=== PATIENT | male | born 1975 | race Caucasian/White ===

== ENCOUNTER 2022-07-06 12:55 | Emergency (ER) | payer BC, SELFPAY ==
--- NOTE | ~2022-07-06 | XR_ITS ---
Right wrist Technique: PA, oblique, lateral, and ulnar deviation views were obtained. Clinical History: Pain Findings: No acute fracture or dislocation is seen. Osseous alignment is anatomic. Joint spaces are p reserved. Soft tissues are unremarkable. Impression: Unremarkable right wrist radiographs. Reviewed, dictated and finalized at location . [employer] LIBRARY LIBRARIAN Impression: Unremarkable right wrist radiographs.
[2022-07-06 13:06] VITALS: BP 147/106; PULSE 99; RESP 20; TEMP 36.3; O2SAT 100
--- NOTE | 2022-07-06 13:08 | ED.UPPEXIN ---
HPI - Extremity Injury (Upper) General Chief Complaint: Extremity Injury, Upper Stated Complaint: Right Wrist Pain Time Seen by Provider: 07/06/22 13:08 Source: patient and RN notes reviewed History of Present Illness HPI narrative: Patient is a 47-year-old male who presents to the Urgent Care with complaints of right wrist pain. Patient states that he was leaning over onto his wrist while working in the attic on Monday and the wrist started to bother him. Patient states he has been wearing a brace and using Aleve and ibuprofen for the pain. Patient states that got worse after walking and having to use his wrist continuously working a she did. No other acute complaints. Denies any known traumatic injuries. No acute distress noted. Patient aware of the plan care. Some parts of this dictation were generated by voice recognition software and may contain typographical and/or grammatical inaccuracies. Related Data Allergies Allergy/AdvReac Type Severity Reaction Status Date / Time No Known Allergies Allergy Unverified 09/03/18 08:27 Review of Systems Review of Systems: CONSTITUTIONAL: Denies fever, chills, or sweats. EYES: Denies visual changes, redness, or discharge. ENT: Denies rhinorrhea, congestion, sore throat, or otalgia. CARDIOVASCULAR: Denies chest pain, palpitations, or edema. RESPIRATORY: Denies cough or dyspnea. GASTROINTESTINAL: Denies abdominal pain, nausea, vomiting, or diarrhea. GENITOURINARY: Denies dysuria or hematuria. SKIN: Denies rash or itching. MUSCULOSKELETAL: Reports right wrist pain NEUROLOGIC: Denies headache, numbness, or weakness. All other systems reviewed are negative, except as documented in HPI. PMFSH Comments At the time of my signature, I reviewed and agree with the nursing past medical, surgical, social, and family history. There is no relevant family history pertinent to the patient complaint. Exam Narrative: GENERAL: This is a well-nourished, well-developed patient, in no apparent distress. HEAD: normocephalic, atraumatic. EYES: PERRL. Sclera clear/white. Vision is grossly intact. EARS: External ears normal NOSE: External nose normal with no obvious nasal discharge, nares without redness, no rhinorrhea. THROAT: Mucous membranes moist NECK: Neck supple CARDIOVASCULAR: Regular rate and rhythm SKIN: warm, intact with no suspicious lesions or rash, good texture and turgor. NEURO: awake, alert, and oriented to person, place and time. There were no obvious focal neurologic abnormalities. EXTREMITIES: No obvious deformity, ecchymosis, erythema or edema noted to the right upper extremity/wrist. Positive strong right radial pulse with capillary refill less than 2 seconds. Range of motion within normal limits with mild exacerbated pain Course Course Level of Care: Express Care Visit Vital Signs Vital signs: Vital Signs Temperature 97.4 F L 07/06/22 13:06 Pulse Rate 99 07/06/22 13:06 Respiratory Rate 20 07/06/22 13:06 Blood Pressure 147/106 H 07/06/22 13:06 Pulse Oximetry 100 07/06/22 13:06 Oxygen Delivery Room Air 07/06/22 13:06 Temperature 97.4 F L 07/06/22 13:06 Pulse Rate 99 07/06/22 13:06 Respiratory Rate 20 07/06/22 13:06 Blood Pressure 147/106 H 07/06/22 13:06 Pulse Oximetry 100 07/06/22 13:06 Oxygen Delivery Room Air 07/06/22 13:06 Reviewed- Patient is informed that they may have pre-hypertension or hypertension based on a blood pressure reading in the department. I recommend the patient call the primary care provider listed on their discharge instructions or a physician of their choice this week to arrange follow-up for further evaluation of possible pre-hypertension or hypertension. MDM - Extremity Injury (Upper) MDM Narrative Medical decision making narrative: Reviewed x-ray results with the patient. He is aware that x-ray was negative for fracture deformity. Advised the patient to wear the brace as needed for comfort and support
--- NOTE | 2022-07-06 13:16 | PC.NURSE ---
PT DECLINED ICE FOR COMFORT. PT BROUGHT WRIST SPLINT FROM HOME.
== END 2022-07-06 13:48 | disposition home or self-care (01) ==
PROVIDERS: Emergency Provider Nurse Practitioner Family; PCP Internal Medicine
DX: M77.8 Other enthesopathies, not elsewhere classified (principal); Z86.16 Personal history of COVID-19
CPT/HCPCS: 73110; 99203; G0463

== ENCOUNTER 2025-02-18 14:30 | Emergency (ER) | payer BC, SELFPAY ==
--- OUTSIDE RECORDS SUMMARY | 2002-04-03 08:00 | XMS_ITS | Continuity of Care Document ---
Author Organization [facility] Address [address] [place] [address] [place] [address] Phone Care Team Providers Care Franchise Development Manager Name Role Phone Piter Pathak MD Unavailable Unavailable Advance Directives Directive Yes / No Effective Date File Name No Information Encounters Encounter Description Practice Location Reason(s) For Visit Diagnoses Date Provider Providers Copied on Encounter [facility], [id number] [place] [address] [address], [place], [place], [id number], [place] tel:[phone] [facility] Professional No Information [address] [facility], [facility], [place], [place], [id number], [place]. tel:[phone] Family History Family Member Type Diagnosis Age At Onset No Information Payers Payer name Insurance type Covered constitution party ID Authoriza tion(s) No Information Social History Type Description Quantity Date Captured Comments Sex Male Smoking Status No Information Chief Complaint And Reason For Visit No Information Reason For Referral Reason For Referral No Information History Of Present Illness Encounter Date Complaint History Of Prese nt Illness No Information Functional Status Date Functional Assessmen t No Information Instructions Date Instruction Additional Infor mation No Information Assessments Type Assessment Date No Information Patient Care Teams Name Effective Dates (start - stop) Status Members No Information
--- OUTSIDE RECORDS SUMMARY | 2002-04-03 08:00 | XMS_ITS | Continuity of Care Document ---
Author Organization [facility] Address [address] [place] [address] [place] [address] Phone Care Team Providers Care Marketing Communications Coordinator Name Role Phone Piter Pathak MD Unavailable Unavailable Advance Directives Directive Yes / No Effective Date File Name No Information Encounters Encounter Description Practice Location Reason(s) For Visit Diagnoses Date Provider Providers Copied on Encounter [facility], [id number] [place] [address] [address], [place], [place], [id number], [place] tel:[phone] [facility] Professional No Information [address] [facility], [place], [place], [id number], [place]. tel:[phone] Family History Family Member Type Diagnosis Age At Onset No Information Payers Payer name Insurance type Covered democrat ID Authoriza tion(s) No Information Social History [...]
--- NOTE | ~2025-02-18 | XR_ITS ---
XR foot LT min 3V 02/18/2025 14:58 Indication: Painful first MTP joint Procedure: 3 views left foot Comparison: No prior studies for comparison. Findings: There is mild osteoarthritis of the first MTP joint. No acute fracture, subluxation or dislocation. There is mild degenerative change of the talonavicular joint. No focal soft tissue abnormality. Lisfranc joint intact. Impression: 1: Mild polyarticular osteoarthritis. Reviewed, dictated and finalized at location O. Impression: 1: Mild polyarticular osteoarthritis.
[2025-02-18 14:40] VITALS: BP 171/94; PULSE 87; RESP 18; TEMP 36.4; O2SAT 98
--- NOTE | 2025-02-18 15:30 | ED.EXTPRO ---
HPI - Extremity Problem General Chief complaint: Extremity Problem,Nontraumatic Stated complaint: Left Foot Pain Source: patient Mode of arrival: ambulatory Limitations: no limitations History of Present Illness HPI Narrative: Patient presents for evaluation of left great toe pain. Symptom onset two days ago. No recent injury. He states he has a history of a remote fracture in the area of his current pain. Pain is constant, 5/10 in severity and sharp. No loss of ROM. Movement makes his symptoms worse. He has tried taking ibuprofen without much improvement. No history of gout however he drinks alcohol daily and also takes hctz. Related Data Home Medications ?Medication ?Instructions ?Recorded ?Confirmed ?Last Taken ?Type atorvastatin 10 mg tablet mg 02/18/25 Unknown History diltiazem HCl 240 mg mg PO 02/18/25 Unknown History capsule,extended release 24 hr hydrochlorothiazide 25 mg tablet mg 02/18/25 Unknown History metformin 500 mg tablet,extended mg PO 02/18/25 Unknown History release 24 hr Allergies Allergy/AdvReac Type Severity Reaction Status Date / Time No Known Allergies Allergy Verified 02/18/25 14:40 Review of Systems Review of Systems: CONSTITUTIONAL: Denies fever, chills, or sweats. EYES: Denies visual changes, redness, or discharge. ENT: Denies rhinorrhea, congestion, sore throat, or otalgia. CARDIOVASCULAR: Denies chest pain, palpitations, or edema. RESPIRATORY: Denies cough or dyspnea. GASTROINTESTINAL: Denies abdominal pain, nausea, vomiting, or diarrhea. GENITOURINARY: Denies dysuria or hematuria. SKIN: Denies rash or itching. MUSCULOSKELETAL: Reports pain in the left great toe NEUROLOGIC: Denies headache, numbness, dizziness, or weakness. PSYCHIATRIC: Denies anxiety or depression. [facility] Past Medical History Medical History Diabetes Hypertension Surgical History Surgical History No pertinent past surgical history Family History Family History Mother Family history unknown Social History Social History Alcohol intake: current Alcohol use details: 4-5 drinks daily Living arrangements: with family Exam Narrative: GENERAL: Well-appearing, well-nourished, and in no acute distress. HEAD: Normocephalic, atraumatic. EYES: PERRLA and EOMI. ENT: Nares clear, no rhinorrhea or epistaxis. Mucous membranes moist. Oropharynx without tonsillar hypertrophy exudate or other lesions. Bilateral TMs pearly vasquez nonbulging NECK: Supple. No adenopathy or masses. No carotid bruits or JVD CHEST: Clear to auscultation. No respiratory distress. No wheezes rales or rhonchi HEART: Regular rate and rhythm. No murmur heard. Normal peripheral pulses. ABDOMEN: Soft, nontender, nondistended, normal active bowel sounds. EXTREMITIES: Normal range of motion. There is trace swelling noted to the 1st MTP of the left foot SKIN: Warm, dry, no rash. NEURO: No focal deficits. Alert and oriented x3. PSYCH: Normal mood and affect. Course Course Emergency Course: This is a 49 year old male who presented for pain in the left great toe. History, risk factors, and physical exam consistent with gout. We discussed potentially being discharged with prednisone and hydrocodone although he did not wish to take any controlled medication. Prednisone may also cause an increase in his blood sugar. Colchicine has a potential drug interaction with diltiazem which he takes. Will dc with indomethacin. Recommended he cut back on drinking. Advise a speak with his primary care provider regarding whether he should continue with hydrochlorothiazide and with her he would be a good candidate for allopurinol. He should go to the emergency department for intractable pain. Patient in agreement with plan of care. Level of Care: Express Care Visit Vital Signs Vital signs: Vital Signs Temperature 36.4 C L 02/18/25 14:40 Pulse Rate 87 02/18/25 14:40 Respiratory Rate 18 02/18/25 14:40 Blood Pressure 171/94 H 02/18/25 14:40 Pulse Oximetry 98 02/18/25 14:40 Oxygen Delivery Room Air 02/18/25 14:40 Temperature 36.4 C L 02/18/25 14:40 Pulse Rate 87 02/18/25 14:40 Respiratory Rate 18 02/18/25 14:40 Blood Pressure 171/94 H 02/18/25 14:40 Pulse Oximetry 98 02/18/25 14:40 Oxygen Delivery Room Air 02/18/25 14:40 MDM - Extremity (Nontraumatic) Imaging Data Radiologist's impression: XR foot LT min 3V 02/18/2025 14:58 Indication: Painful first MTP joint Procedure: 3 views left foot Comparison: No prior studies for comparison. Findings: There is mild osteoarthritis of the first MTP joint. No acute fracture, subluxation or dislocation. There is mild degenerative change of the talonavicular joint. No focal soft tissue abnormality. Lisfranc joint intact. Impression: 1: Mild polyarticular osteoarthritis. Discharge Plan Discharge Clinical Impression: Gout Patient Disposition: Home Condition: Stable Instructions: Antibiotic Form, Gout (ED) Additional Instructions: PLEASE SPEAK WITH YOUR PRIMARY CARE PROVIDER ABOUT WHETHER YOU SHOULD CONTINUE WITH HCTZ AND WHETHER YOU WOULD BENEFIT FROM ALLOPURINOL Patient Language: Ghanaian Prescriptions: New indomethacin 50 mg capsule 50 mg PO TID 7 Days Qty: 21 0RF Rx Instructions: administer with food or milk No Action atorvastatin 10 mg tablet diltiazem HCl 240 mg capsule,extended release 24hr PO hydrochlorothiazide 25 mg tablet metformin 500 mg tablet extended release 24 hr PO Follow-up/Referrals: Kristin,Howard Hernandez MD [Primary Care Provider] Time of Disposition: 15:19
--- OUTSIDE RECORDS SUMMARY | 2025-02-18 16:10 | XMS_ITS | Clinical Summary ---
Author Organization [facility] Address [address] [place] [address] Care Team Providers Care Health Insurance Sales Agent Name Role Phone Unavailable Primary Care Provider Unavailabl e Source Comments [facility],non-owned Affiliates and Associated Physician Practices is amultiple site organization consisting of ambulatory clinics and hospital sitesin [place], [place], [place] and [place]. This disclosure is being madepursuant to the Care Everywhere program and may not contain all information available regarding this patient. Last updated 18.[facility] Allergies No known active allergies Medications * Be aware that medications may not be up to date on this document. Alwaysverify current medications with the patient. No known medications Social History Tobacco Use Types Packs/Day Years Used Date Smoking Tobacco: Never Assessed Sex and Gender Information Value Date Recorded Sex Assigned at Not on file Legal Sex Male 8:04 AM CDT Gender Identity Not on file Sexual Orientation Not on file Last Filed Vital Signs Vital Sign Reading Time Taken Comments Blood Pressure 124/80 02/18/2016 8:25 AM CDT Pulse 81 02/18/2016 8:25 AM CDT Temperature 37 C (98.6 F) 02/18/2016 8:25 AM CDT Respiratory Rate - - Oxygen Saturation - - Inhaled Oxygen Concentration - - Weight 88 kg (194 lb) 02/18/2016 8:25 AM CDT Height 182.9 cm (6') 02/18/2016 8:25 AM CDT Body Mass Index 26.31 02/18/2016 8:25 AM CDT Plan of Treatment Health Maintenance Due Date Last Done Comments COLOGUARD (AGES 45-75) - COL ON CA SCREENING 1975 COLON MONITORING 1975 COLONOSCOPY - COLON CA SCREENING 1975 CT COLONOGRAPHY - COLON CA SCREENING 1975 Colorectal Cancer Screening 1975 FIT - COLON CA SCREENING 1975 FLEX SIG - COLON CA SCREENING 1975 LIPID TESTING 1975 HIV SCREENING 1990 HEPATITIS C SCREENING 03/10/1993 DTAP/TDAP/TD VACCINES (1 - Tdap) 1994 HEPATITIS B VACCINE (1 of 3 - 19+ 3-dose series) 1994 DEPRESSION SCREENING 06/12/2024 COVID-19 VACCINE (1 - 2023-2 5 season) 2025 INFLUENZA VACCINE (#1) 2025 ZOSTER VACCINE (1 of 2) 2025 HIB VACCINE Aged Out No longer eligi ble based on patient's age to complete this topic HPV VACCINE Aged Out No longer eligi ble based on patient's age to complete this topic MENINGOCOCCAL (Group B) VACC INE SHARED DECISION-MAKING Aged Out No longer eligibl e based on patient's age to complete this topic MENINGOCOCCAL GROUPS A/C/Y/W VACCINE Aged Out No longer eligible b ased on patient's age to complete this topic Insurance BEATRICE
--- OUTSIDE RECORDS SUMMARY | 2025-02-18 16:10 | XMS_ITS | Encounter Summary ---
Author Organization [facility] Address [address] [place] [address] Care Team Providers Care Cager Operator Name Role Phone Howard Foster MD Primary Care Provider [phone] Reason for Visit * Reason Comments Medication Question Encounter Details Date Type Department Care Team (Late st Contact Info) Description 09/21/2023 Telephone [facility] Primary Care [address] [place] [address] Howard Foster MD [address] [place] [address] [address] [place] [address] Medication Question Social History Tobacco Use Types Packs/Day Years Used Date Smoking Tobacco: Never Passive Smoke Exposure: Never Smokeless Tobacco: Current Chew Alcohol Use Standard Drinks/Week Comments Yes 4 (1 standard drink = 0.6 oz pur e alcohol) occ Feeling Safe Answer Date Recorded Are you in a relationship wi th someone who hurts you emotionally and/or physically? No 09/22/2023 Sex and Gender Information Value Date Recorded Sex Assigned at Not on file Legal Sex Male 4:31 PM INTERNATIONAL RECRUITER Gender Identity Not on file Sexual Orientation Not on file documented as of this encounter Miscellaneous Notes * Telephone Encounter - Carmelita Perez LPN - 09/21/2023 8:49 AM CDT MM sent to provider, please allow 24-48 business hours for a reply * Telephone Encounter - Tato, Sherrill Crystal - 09/21/2023 8:44 AM CDT Copied from [facility] #[id number]. Topic: Patient or Caregiver Communication Request >> Sep 21, 2023 8:41 AM Sherrill Olivera wrote: Patient or Caregiver insisting that a message be sent to Care Team Caller: Howard Bermudez Patient/Caregiver Callback Number: [phone] (home) Call Notes: Patient states he sent a [employer] message informing PCP bout his anxiety he has been having regarding his upcoming colonoscopy. Patient states it has bene causing his BP to rise to 150/90ish. Patient is asking if PCP could prescribe a medication for the days upcoming. Please advise. [facility] #[id number] - [place], [place] - [facility] [address] [facility] [address] [facility] [address] Hours: Not open 24 hours documented in this encounter Plan of Treatment Upcoming Encounters Date Type Department Care Team (Late st Contact Info) Description 08/08/2025 9:00 AM INTERNATIONAL RECRUITER Office Visit [facility] Primary Care [facility] [address] [place] [address] Howard Foster MD [address] [place] [phone] documented as of this encounter Visit Diagnoses Not on filedocumented in this encounter Care Teams Cager Operator Relationship Specialty Start Date End Date Howard Foster MD [address] [place] [address] [address] [place] [phone] PCP - General Internal Medicine 08/15/22 documented as of this encounter
--- OUTSIDE RECORDS SUMMARY | 2025-02-18 16:10 | XMS_ITS | Clinical Summary ---
Author Organization [facility] [address] [place] [address] Address [address] [place] [address] Care Team Providers Care Engineering Recruiter Name Role Phone Howard Foster MD Primary Care Provider [phone] Allergies Active Allergy Reactions Criticality Noted Date Comments Amlodipine Other (See Comments) 01/30/2024 Edema Losartan Dizziness Low 01/30/2024 Nebivolol Hives High 09/23/2022 ? Medications clobetasoL (TEMOVATE) 0.05 % Cream Apply to affected area 2 times daily. 60 Gram 2 4 Active hydroCHLOROthiazi de 25 mg tabletIndications :Essential hypertension TAKE 1 TABLET(25 MG) BY MOUTH DAILY 100 Tablet 3 4 Active atorvastatin (LIPITOR) 10 mg tablet TAKE 1 TABLET(10 MG) BY MOUTH DAILY 100 Tablet 3 5 Active dilTIAZem (CARDIZEM CD, CARTIA XT) 240 mg Controlled Delivery 24 hour capsule Take 1 Capsule (240 mg) by mouth daily. 90 Capsule 3 5 Active metFORMIN (GLUCOPHAGE XR) 500 mg Extended Release 24 hour tablet Take 1 Tablet (500 mg) by mouth daily with breakfast. 30 Tablet 6 5 Active Active Problems Patient Care Coordination No te Formatting of this note migh t be different from the original. Prev 07/19/24 Problem Noted Date Diagnosed Date Essential hypertension 11/02/2023 Prediabetes 10/17/2023 Dyslipidemia 10/17/2023 Family history of prostate cancer 08/15/2022 Resolved Problems Problem Noted Date Diagnosed Date Resolved Date Elevated BP without diagnosis of hypertension 08/16/19 23 10/17/2023 Encounters Date Type Department Care Team Description 01/22/2025 9:40 AM CDT Office Visit [address] [address] Howard Foster MD Prediabetes (Primary Dx); Other hyperlipidemia; Essential hypertension; Right wrist pain from Last 3 Months Immunizations Immunization Administration Dates Next Due (ADACEL/BOOSTRIX)(10 YR UP) TDAP VACCINE, 0.5ML, IM 08/15/2022 INFLUENZA VACCINE QUADRIVALENT 6 MOS UP PF IM Family History Medical History Relation Name Comments Heart Attack Father Prostate Cancer Father Lung Cancer Mother Asthma Sister Colon Cancer Neg Hx Relation Name Status Comments Father (Age 70) Mother (Age 40) Sister Alive Social History Tobacco Use Types Packs/Day Years Used Date Smoking Tobacco: Never Passive Smoke Exposure: Never Smokeless Tobacco: Former Chew Tobacco Cessation:Counseling Given: No Alcohol Use Standard Drinks/Week Comments Yes 4 (1 standard drink = 0.6 oz pur e alcohol) occ Feeling Safe Answer Date Recorded Are you in a relationship wi th someone who hurts you emotionally and/or physically? 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 Gender Identity Not on file Sexual Orientation Not on file Last Filed Vital Signs Vital Sign Reading Time Taken Comments Blood Pressure 130/60 01/22/2025 9:28 AM CDT Pulse 80 01/22/2025 9:28 AM CDT Temperature 37.1 C (98.7 F) 10/17/2023 8:52 AM CDT Respiratory Rate 14 09/22/2023 8:12 AM CDT Oxygen Saturation 95% 01/22/2025 9:28 AM CDT Inhaled Oxygen Concentration - - Weight 93 kg (205 lb) 01/22/2025 9:28 AM CDT Height 180.3 cm (5' 11) 01/22/2025 9:28 AM CDT Body Mass Index 28.59 01/22/2025 9:28 AM CDT Plan of Treatment Upcoming Encounters Date Type Department Care Team (Late st Contact Info) Description 08/08/2025 9:00 AM FOREST FIRE PREVENTION SPECIALIST Office Visit [address] [place] [phone] Howard Foster MD [address] [place] [address] [address] [place] [address] Health Maintenance Due Date Last Done Comments HEPATITIS B VACCINES (1 of 3 - 19+ 3-dose series) 1994 FIT-DNA Q 3 years 2020 FIT/FOBT Q 1 year 2020 Flex Sig/CT Colonography Q 5 years 2020 INFLUENZA VACCINE (#1) 2025 , 02/15/2023, 02/15/2023 Pre-Diabetes and Diabetes Screening 01/16/2028 01/15/2025, 07/10/2024, 01/12/2024, Additional history exists COLORECTAL SCREENING 09/21/2030 09/22/2023, 09/22/19 24 Colorectal Cancer Screening 09/21/2030 DTAP/TDAP/TD VACCINES (2 - T d or Tdap) 08/15/2032 08/15/2022 Preventative Visit- Commercial Completed 0 07/19/2024, 07/18/2023, 08/15/2022 Procedures Procedure Name Priority Date/Time Associated Diagnosis Comments TSH Routine 01/15/2025 8:50 AM CDT Other hyperlipidemia PSA Routine 01/15/2025 8:50 AM CDT Screening PSA (prostate specific antigen) LIPID PANEL Routine 01/15/2025 8:50 AM CDT Other hyperlipidemia HEMOGLOBIN A1C Routine 01/15/2025 8:50 AM CDT Prediabetes COMPREHENSIVE METABOLIC PANEL Routine 01/15/2025 8:50 AM CDT Other hyperlipidemia CBC WITH DIFFERENTIAL Routine 01/15/2025 8:50 AM CDT Essential hypertension COLONOSCOPY REPORT 09/22/2023 7: 59 AM CDT from Last 3 Months or Most Recently Relevant to Health Maintenance Results * (ABNORMAL) CBC WITH DIFFERENTIAL (01/15/2025 8:50 AM CDT) WBC 3.8 3.8 - 10.8 Thousand/u L [facility] RBC 5.17 4.20 - 5.80 Million/uL [facility] HEMOGLOBIN 15.6 13.2 - 17.1 g/dL [facility] HEMATOCRIT 48.0 38.5 - 50.0 % [facility] MCV 92.8 80.0 - 100.0 fL [facility] MCH 30.2 27.0 - 33.0 pg [facility] MCHC 32.5 32.0 - 36.0 g/dL [facility] Comment: For adults, a slight decrease in the calculated MCHC value (in the range of 30 to 32 g/dL) is most likely not clinically significant; however, it should be interpreted with caution in correlation with other red cell parameters and the patient's clinical condition. RDW 12.7 11.0 - 15.0 % [facility] PLATELETS 211 140 - 400 Thousand/u L [facility] MPV 10.3 7.5 - 12.5 fL [facility] NEUTROPHIL ABSOLUTE 1,474(L) 1,500 - 7,800 cells/uL [facility] LYMPHOCYTE ABSOLUTE 1,414 850 - 3,900 cells/uL [facility] MONOCYTE ABSOLUTE 692 200 - 950 cells/uL [facility] EOSINOPHIL ABSOLUTE 160 15 - 500 cells/uL [facility] BASOPHILS ABSOLUTE 61 0 - 200 cells/uL [facility] NEUTROPHIL 38.8 % [facility] LYMPHOCYTES 37.2 % [facility] MONOCYTE 18.2 % [facility] EOSINOPHILS 4.2 % [facility] BASOPHILS 1.6 % [facility] Comment: FASTING:YES FASTING: YES Test Performed at: [facility] [address] [place] [address] Miguel Bar MD Blood 01/15/2025 8:50 AM CDT 01/15/2025 8:51 AM CDT Howard Foster MD HEMATOLOGY ORDERABLES Final R esult [facility] [phone] [facility] [address] [place] [address] * TSH (01/15/2025 8:50 AM CDT) TSH 1.98 0.40 - 4.50 mIU/L [facility] Comment: Test Performed at: [facility] [address] [place] [address], [place] [address] Miguel Bar MD Blood 01/15/2025 8:50 AM CDT 01/15/2025 8:51 AM CDT Howard Foster MD CHEMISTRY ORDERABLES Final Re sult Performing Organization Address City/[facility]/ZIP Co de Phone Number [facility] [phone] [facility] [address] [place] [phone] * PSA (01/15/2025 8:50 AM CDT) PSA 1.18 < OR = 4.00 ng/mL [facility] Comment: The total PSA value from this assay system is standardized against the WHO standard. The test result will be approximately 20% lower when compared to the equimolar-standardized total PSA (Lisa [place]). Comparison of serial PSA results should be interpreted with this fact in mind. This test was performed using the Siemens chemiluminescent method. Values obtained from different assay methods cannot be used interchangeably. PSA levels, regardless of value, should not be interpreted as absolute evidence of the presence or absence of disease. FASTING:YES FASTING: YES Test Performed at: [facility] [address] [place] [address] [place] [address] Miguel Bar MD Blood 01/15/2025 8:50 AM CDT 01/15/2025 8:51 AM CDT Howard Foster MD CHEMISTRY ORDERABLES Final Re sult Performing Organization Address City/State/ZIP Co sc Phone Number [facility] [phone] [facility] [address] [place] [address] * (ABNORMAL) HEMOGLOBIN A1C (01/15/2025 8:50 AM CDT) HEMOGLOBIN A1C 6.1(H) <5.7 % of total Hgb [facility] Comment: For someone without known diabetes, a hemoglobin A1c value between 5.7% and 6.4% is consistent with prediabetes and should be confirmed with a follow-up test. For someone with known diabetes, a value <7% indicates that their diabetes is well controlled. A1c targets should be individualized based on duration of diabetes, age, comorbid conditions, and other considerations. This assay result is consistent with an increased risk of diabetes. Currently, no consensus exists regarding use of hemoglobin A1c for diagnosis of diabetes for children. ESTIMATED AVERAGE GLUCOSE (MG/DL) 128 mg/dL [facility] ESTIMATED AVERAGE GLUCOSE (MMOL/L) 7.1 mmol/L [facility] Comment: FASTING:YES FASTING: YES Test Performed at: [facility] [address] [place] [address] [facility] Blood 01/15/2025 8:50 AM CDT 01/15/2025 8:51 AM CDT Howard Foster MD CHEMISTRY ORDERABLES Final Re sult [facility] [phone] [facility] [address] [place] [address] * (ABNORMAL) LIPID PANEL (01/15/2025 8:50 AM CDT) CHOLESTEROL 182 <200 mg/dL [facility] HDL 55 > OR = 40 mg/dL [facility] TRIGLYCERIDE 102 <150 mg/dL [facility] LDL CALCULATED 107(H) mg/dL (calc) [facility] Comment: Reference range: <100 Desirable range <100 mg/dL for primary prevention; <70 mg/dL for patients with CHD or diabetic patients with > or = 2 CHD risk factors. LDL-C is now calculated using the Darren-Sarabia calculation, which is a validated novel method providing better accuracy than the Friedewald equation in the estimation of LDL-C. Darren SS et al. DWIGHT. 2013;310(19): 1297-1484 (http://education.[employer]/faq/QBL168) CHOL/HDL RATIO 3.3 <5.0 (calc) [facility] NON-HDL CHOLESTEROL 127 <130 mg/dL (calc) [facility] Comment: For patients with diabetes plus 1 major ASCVD risk factor, treating to a non-HDL-C goal of <100 mg/dL (LDL-C of <70 mg/dL) is considered a therapeutic option. Test Performed at: [facility] [address] [place] [address] Miguel Bar MD Blood 01/15/2025 8:50 AM CDT 01/15/2025 8:51 AM CDT us Howard Foster MD CHEMISTRY ORDERABLES Final Re sult [facility] [phone] [facility] [address] [place] [address] * (ABNORMAL) COMPREHENSIVE METABOLIC PANEL (01/15/2025 8:50 AM CDT) GLUCOSE 126(H) 65 - 99 mg/dL [facility] Comment: Fasting reference interval For someone without known diabetes, a glucose value >125 mg/dL indicates that they may have diabetes and this should be confirmed with a follow-up test. BUN 9 7 - 25 mg/dL [facility] CREATININE 0.79 0.60 - 1.29 mg/dL [facility] GFR 109 > OR = 60 mL/min/1. 73m2 [facility] BUN/CREAT RATIO SEE NOTE: 6 - 22 (calc) [facility] Comment: Not Reported: BUN and Creatinine are within reference range. SODIUM 139 135 - 146 mmol/L [facility] POTASSIUM 4.6 3.5 - 5.3 mmol/L [facility] CHLORIDE 102 98 - 110 mmol/L [facility] CO2 29 20 - 32 mmol/L [facility] CALCIUM 9.5 8.6 - 10.3 mg/dL [facility] TOTAL PROTEIN 7.3 6.1 - 8.1 g/dL [facility] ALBUMIN 4.5 3.6 - 5.1 g/dL [facility] GLOBULIN 2.8 1.9 - 3.7 g/dL (calc) [facility] ALBUMIN/GLOBULIN RATIO 1.6 1.0 - 2.5 (calc) [facility] BILIRUBIN TOTAL 0.6 0.2 - 1.2 mg/dL [facility] ALKALINE PHOSPHATASE 50 36 - 130 U/L [facility] AST 26 10 - 40 U/L [facility] ALT 32 9 - 46 U/L [facility] Comment: FASTING:YES FASTING: YES Test Performed at: [facility] [address] [place] [address] Miguel Bar MD Blood 01/15/2025 8:50 AM CDT 01/15/2025 8:51 AM CDT us Howard Foster MD CHEMISTRY ORDERABLES Final Re sult [facility] [phone] [facility] [address] [facility] [place] [address] * COLONOSCOPY REPORT (09/22/2023 7:59 AM CDT) Narrative Procedure Note Иван Kallie OliveraDO - 09/22/2023 7:59 AM CDT [facility] Endoscopy Patient Name: Howard Bermudez Procedure Date: 09/22/2023 Date of : 1975 Age: 48 Attending MD: Kallie Oates MD, Procedure: Colonoscopy Indications: Screening for colorectal malignant neoplasm, This is the patient's first colonoscopy Providers: Kallie Oates MD Referring MD: Howard Foster MD Medicines: Monitored Anesthesia Care Procedure: Informed consent was obtained for the procedure, including moderate sedation after risks were discussed. Based on the pre-procedure assessment, including review of the patient's medical history, medications, allergies, and review of systems, the patient was deemed to be an appropriate candidate for sedation. A timeout was performed. Continuous ECG monitoring, pulse oximetry, blood pressure monitoring, and direct observation were performed. The Colonoscope was introduced through the anus and advanced to the terminal ileum. The colonoscopy was performed without difficulty. The patient tolerated the procedure well. The quality of the bowel preparation was good. Anatomical landmarks were photographed. Estimated Blood Loss: Estimated blood loss was minimal. Findings: The perianal examination was normal. An 8 mm polyp was found in the hepatic flexure. The polyp was sessile. The polyp was removed with a cold snare. Resection and retrieval were complete. Estimated blood loss was minimal. Retroflexion in the right colon was performed. The terminal ileum appeared normal. Non-bleeding hemorrhoids were found during retroflexion. Complications: No immediate complications. Impression: - One 8 mm polyp at the hepatic flexure, removed with a cold snare. Resected and retrieved. - The examined portion of the ileum was normal. - Non-bleeding hemorrhoids. Recommendation: - Await pathology results. - Repeat colonoscopy 3 or 7 years pending biopsy results. For surveillance based on pathology results. Kallie Oates MD 09/22/2023 7:59:16 AM This report has been signed electronically. Number of Addenda: 0 Procedure Date: 09/22/2023 7:33:14 AM [address] [address] Kallie Olivera Oates DO GI PROCEDURE ORDERABLES Fin al Result from Last 3 Months or Most Recently Relevant to Health Maintenance Insurance [employer] BLUE PREFERRED Advance Directives For more information, please contact: [phone] * Full Code (Latest Code Status on File) Date Activated Date Inactivated Comments 09/22/2023 6:55 AM 09/22/2023 10:24 AM Care Teams Engineering Recruiter Relationship Specialty Start Date End Date Howard Foster MD [address] [place] [address] PCP - General Internal Medicine 08/15/22
== END 2025-02-18 15:23 | disposition home or self-care (01) ==
PROVIDERS: Emergency Provider Nurse Practitioner; PCP Internal Medicine
DX: M10.9 Gout, unspecified (principal); E11.9 Type 2 diabetes mellitus without complications; Z79.84 Long term (current) use of oral hypoglycemic drugs; I10 Essential (primary) hypertension
CPT/HCPCS: 73630; 99213; G0463